=== PATIENT | female | born 1995 | race Caucasian/White ===

== ENCOUNTER 2022-06-18 02:01 | Inpatient (IN) | payer SELFPAY ==
[~2022-06-18] VITALS: Ht 162.6 cm; Wt 70.3 kg
[2022-06-18 02:05] VITALS: BP 120/78
--- NOTE | 2022-06-18 02:09 | NUR ---
TO LOBBY FOLLOWING TRIAGE. UNABLE TO PROVIDE UA AT THIS TIME
--- NOTE | 2022-06-18 03:57 | NUR ---
TO BED 2 FROM LOBBY
[2022-06-18] MEDS ORDERED: KETOROLAC 30 MG/ML VIAL IVP ONE (04:30)
[2022-06-18] MEDS ORDERED: NACL 0.9% 1,000 ML IV ONE (04:30)
[2022-06-18 04:55] LABS: BILIRUBIN,URINE NEGATIVE (NEGATIVE); BLOOD, URINE 3+ (NEGATIVE); COLOR,URINE YELLOW (YELLOW); LEUKOCYTE ESTERASE ,URINE NEGATIVE (NEGATIVE); NITRITE, URINE NEGATIVE (NEGATIVE); PH,URINE 7.5 (5.0-9.0); UGLUCOSE NEGATIVE (NEGATIVE)
[2022-06-18 05:11] LABS: APPEARANCE,URINE SLIGHTLY HAZY (CLEAR)
[2022-06-18 05:17] LABS: RBC,URINE 0-5 /HPF (0-5)
[2022-06-18 05:50] LABS: HEMATOCRIT 33.6 % (36-48); HEMOGLOBIN 10.8 g/dL (12.0-16.0); MEAN CORPUSCULAR HEMOGLOBIN 25 pg (27-31); MEAN CORPUSCULAR HGB CONC 32 g/dL (33-37); MEAN CORPUSCULAR VOLUME 79.3 fL (80-94); PLATELET COUNT (AUTO) 334 K/uL (140-450); RED BLOOD CELL COUNT(AUTO) 4.24 MIL/uL (4.20-5.40); RED CELL DISTRIBUTION WIDTH 18.5 % (11.6-13.7); WHITE BLOOD COUNT (AUTO) 17.8 K/uL (4.8-10.8)
[2022-06-18 06:03] LABS: ALBUMIN 3.9 g/dL (3.4-5.0); ANION GAP 10.2 (8-16); CARBON DIOXIDE 28.6 mmol/L (21-32); CREATININE 0.7 mg/dL (0.6-1.3); POTASSIUM 3.8 mmol/L (3.5-5.1); TOTAL BILIRUBIN 0.5 mg/dL (0.0-1.0)
[2022-06-18 06:14] LABS: LYMPHOCYTES % (MANUAL) 7 % (20-46); MONOCYTES % (MANUAL) 2 % (5-12)
[2022-06-18] MEDS ORDERED: CEFEPIME 1,000 MG in DEXTROSE 5% 50 ML IV ONE (06:35)
[2022-06-18] MEDS ORDERED: CEFEPIME 1,000 MG VIAL ONE (06:40)
[2022-06-18] MEDS ORDERED: ACETAMINOPHEN 325 MG TAB PO PRN (07:10)
[2022-06-18] MEDS ORDERED: POTASSIUM CHLORIDE 10 MEQ TABER PO PRN (07:10)
[2022-06-18] MEDS ORDERED: DOCUSATE SODIUM 100 MG GELCAP PO PRN (07:10)
[2022-06-18] MEDS ORDERED: ZOLPIDEM 10 MG TAB PO PRN (07:10)
[2022-06-18] MEDS ORDERED: MAG SULF 2000 MG/WATER PREMIX 50 ML IV PRN (07:10)
[2022-06-18] MEDS ORDERED: LORazepam 2 MG/ML VIAL IVP PRN (07:10)
[2022-06-18] MEDS ORDERED: MORPHINE SULFATE 2 MG/ML SYR IVP PRN (07:10)
[2022-06-18] MEDS ORDERED: ONDANSETRON 4 MG/2 ML VIAL IVP PRN ×2 (07:10→11:15)
--- NOTE | 2022-06-18 07:15 | NUR ---
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
--- NOTE | 2022-06-18 10:51 | NUR ---
Patient taken by OR nurse for surgery.
[2022-06-18] MEDS ORDERED: SUGAMMADEX SODIUM 200 MG/2 ML VIAL IV ONE ×2 (11:05→11:15)
[2022-06-18] MEDS ORDERED: fentaNYL citrate 0.05 MG/ML VIAL ONE (11:05)
[2022-06-18] MEDS ORDERED: BUPIVACAINE-MPF/EPI 0.25% 30 ML VIAL INJ ONE (11:06)
[2022-06-18] MEDS ORDERED: LIDOCAINE 1% 500 MG/50 ML VIAL ONE (11:06)
--- NOTE | 2022-06-18 11:08 | NUR ---
Chart checked and completed. The patient's care was reviewed and supervised by Vickie Mason RN.
[2022-06-18] MEDS ORDERED: ePHEDrine 50 MG/ML VIAL ONE ×2 (11:15→12:03)
[2022-06-18] MEDS ORDERED: SEVOFLURANE 250 ML BTL INH ONE (11:15)
[2022-06-18] MEDS ORDERED: ROCURONIUM 50 MG/5 ML VIAL IV ONE (11:15)
[2022-06-18] MEDS ORDERED: LACTATED RINGERS 1,000 ML IV SCH (11:15)
[2022-06-18] MEDS ORDERED: PROPOFOL 200 MG/20 ML VIAL IV ONE (11:15)
[2022-06-18] MEDS ORDERED: DEXAMETHASONE 10 MG/ML VIAL ONE (11:15)
[2022-06-18] MEDS ORDERED: HYDROmorphone 1 MG/ML AMP IVP PRN ×2 (11:15→12:30)
[2022-06-18] MEDS ORDERED: ONDANSETRON 4 MG/2 ML VIAL ONE (11:15)
[2022-06-18] MEDS ORDERED: MEPERIDINE 25 MG/ML SYR IVP PRN (11:15)
[2022-06-18] MEDS ORDERED: AMPICILLIN/SULBACTAM 1.5 GM in NACL 0.9% 50 ML IV SCH (12:00)
--- NOTE | 2022-06-18 12:05 | NUR ---
PATIENT HAS BEEN SCREENED AND CATEGORIZED LOW NUTRITION RISK. PATIENT WILL BE SEEN WITHIN 7 DAYS OF ADMISSION. 06/25/[address]
[2022-06-18 13:28] VITALS: BP 125/80
[2022-06-18 16:00] VITALS: BP 129/71
[2022-06-18] MEDS: AMPICILLIN/SULBACTAM 1.5 GM in NACL 0.9% 50 ML IV SCH (18:00)
[2022-06-18] MEDS: HYDROcodone/APAP 5/325 MG 1 TAB TAB PO PRN (18:14)
--- NOTE | 2022-06-18 18:59 | NUR ---
RECEIVED REPORT FROM AM NURSE TERESE, RN FOR CONTINUITY OF CARE. PT IS STABLE. ICELANDIC SPEAKING. BOYFRIEND AT BEDSIDE. A&OX4. DENIES PAIN. ON RM AIR/O2 WITH NO ACUTE DISTRESS RR EVEN AND UNLABORED WITH EQUAL CHEST RISE. GI 4 INCISIONS WITH DURABOND. PT IS AMBULATORY AND CONTINENT. ALL SAFETY MEASURES IN PLACE. CALL LIGHT WITHIN REACH.
--- NOTE | 2022-06-18 19:00 | NUR ---
1800 DOSE OF UNASYN ABX WAS NON ADMINISTERED IN E-SEP. DAYSHIFT SOCRATES GUDINO SAID SHE GAVE 1800 DOSE OF UNASYN AT 1900. IT WAS NOT CHARTED GIVEN.
[2022-06-18 20:00] VITALS: BP 107/69
[2022-06-19] VITALS: BP 99/61
[2022-06-19] MEDS: AMPICILLIN/SULBACTAM 1.5 GM in NACL 0.9% 50 ML IV SCH ×3 (00:10→11:42)
[2022-06-19 04:00] VITALS: BP 104/64
[2022-06-19 05:48] LABS: HEMATOCRIT 30.8 % (36-48); LYMPHOCYTES % (AUTO) 10.7 % (20.5-51.1); MEAN CORPUSCULAR HEMOGLOBIN 26 pg (27-31); MEAN CORPUSCULAR HGB CONC 32 g/dL (33-37); MEAN CORPUSCULAR VOLUME 80.2 fL (80-94); MONOCYTES # (AUTO) 0.4 K/uL (0.8-1.0); MONOCYTES % (AUTO) 4.2 % (1.7-9.3); NEUTROPHILS # (AUTO) 8.3 K/uL (1.8-7.7); NEUTROPHILS % (AUTO) 85.1 % (42.2-75.2); PLATELET COUNT (AUTO) 333 K/uL (140-450); RED BLOOD CELL COUNT(AUTO) 3.85 MIL/uL (4.20-5.40); RED CELL DISTRIBUTION WIDTH 18.6 % (11.6-13.7); WHITE BLOOD COUNT (AUTO) 9.7 K/uL (4.8-10.8)
[2022-06-19 06:27] LABS: ANION GAP 11.1 (8-16); CARBON DIOXIDE 28.6 mmol/L (21-32); CREATININE 0.6 mg/dL (0.6-1.3); POTASSIUM 3.7 mmol/L (3.5-5.1)
[2022-06-19 08:00] VITALS: BP 105/67
[2022-06-19] MEDS: HYDROcodone/APAP 5/325 MG 1 TAB TAB PO PRN (09:53)
[2022-06-19] MEDS ORDERED: HYDR-5080 PO (13:37)
[2022-06-19 15:16] VITALS: BP 106/66
[2022-06-19 16:00] VITALS: BP 103/62
--- NOTE | 2022-06-19 16:30 | NUR ---
RECEIVED DISCHARGE ORDER, DISCHARGE PACKET GIVEN AND EXPLAINED TO PATIENT WITH TRANSLATION PROVIDED BY JENNIFER CROWELL. ALL QUESTIONS ANSWERED. PT VERBALIZED UNDERSTANDING OF ALL DISCHARGE INSTRUCTIONS/EDUCATION/PRESCRIPTION AND INSTRUCTED TO MAKE FOLLOW UP APPT WITH PCP. IV SITE REMOVED, CATH INTACT, NO BLEEDING NOTED. ABD INCISIONS CDI, NO REDNESS OR DRAINAGE NOTED. SIGNED DISCHARGE PACKET PLACED IN CHART. DRESSED AND PREPARED FOR DISCHARGE.
--- NOTE | 2022-06-19 18:00 | NUR ---
PATIENT DISCHARGED HOME WITH ALL BELONGINGS, ACCOMPANIED BY RN TO FAMILY VEHICLE, D/C HOME WITH FAMILY.
== END 2022-06-19 18:02 | disposition home or self-care (01) | DRG 854 ==
LOC: MED 02:01 → MTU 06:43 → MMU 13:21
PROVIDERS: ADMIT Family Medicine; ATTEND Family Medicine
PROC: 0DTJ4ZZ Resection of Appendix, Percutaneous Endoscopic Approach (ICD-10-PCS; principal; 2022-06-18 11:00)
DX: A41.9 Sepsis, unspecified organism (principal); K35.80 Unspecified acute appendicitis; N39.0 Urinary tract infection, site not specified; Z20.822 Contact with and (suspected) exposure to COVID-19; D50.9 Iron deficiency anemia, unspecified; Z90.49 Acquired absence of other specified parts of digestive tract
CPT/HCPCS: 36415; 71045; 80048; 80053; 81001; 83735; 85025; 87081; 87086; 93005; 96365; 96375; 99285; J0295; J0692; J1100; J1170; J1885; J2001; J2405; J2704; J3010; J3490; Q0092